=== PATIENT | female | born 1985 | race Caucasian/White ===

== ENCOUNTER 2019-02-05 13:56 | Inpatient (IN) | payer OTHER ==
[~2019-02-05] VITALS: Ht 170.2 cm; Wt 0.4 kg
[~2019-02-05 13:56] MED LIST: ACET325 PO; IBUP600 PO; Keflex500 MG PO; Naprosyn500 MG PO; Ultram50 MG PO; Veetids 500500 MG PO; Verotin-Gr Cap1 EACH PO
[2019-02-05 14:17] LABS: BASOPHILS ABSOLUTE AUTO 0.05 K/mm3 (0.00-0.23); BASOPHILS PERCENT AUTO 0 % (0-2); EOSINOPHILS ABSOLUTE AUTO 0.07 K/mm3 (0.00-0.68); EOSINOPHILS PERCENT AUTO 1 % (0-6); Hematocrit 40.1 % (33.0-51.0); Hemoglobin 13.3 g/dL (11.5-16.0); IMMATURE GRAN ABSOLUTE AUTO 0.12 K/mm3 (0.00-0.10); IMMATURE GRAN PERCENT AUTO 1 % (0-1); LYMPHOCYTES ABSOLUTE AUTO 2.07 K/mm3 (0.84-5.20); LYMPHOCYTES PERCENT AUTO 17 % (21-46); MONOCYTES ABSOLUTE AUTO 0.84 K/mm3 (0.16-1.47); MONOCYTES PERCENT AUTO 7 % (4-13); Mean Corpuscular HGB 30.7 pg (26.0-34.0); Mean Corpuscular HGB Conc 33.2 g/dL (31.5-36.5); Mean Corpuscular Volume 93 fL (80-100); Mean Platelet Volume 10.2 fL (9.1-12.4); NEUTROPHILS ABSOLUTE AUTO 8.93 K/mm3 (1.96-9.15); NEUTROPHILS PERCENT AUTO 74 % (41-73); Platelet Count 232 K/mm3 (150-400); RDW Coefficient Variation 11.9 % (11.7-14.2); RDW Standard Deviation 40.8 fL (35.1-46.3); Red Blood Cell Count 4.33 M/mm3 (3.80-5.20); White Blood Cell Count 12.08 K/mm3 (4.00-11.30)
[2019-02-07 09:20] LABS: PCO2 Cord - Venous 36.2 mmHg (40-50); PO2 Cord - Venous 24.2 mmHg (28-32)
[2019-02-07 09:21] LABS: PCO2 Cord - Arterial 47.3 mmHg (40-50); PO2 Cord - Arterial 15.7 mmHg (16-20); pH Cord - Arterial 7.33 (7.28-7.35)
--- NOTE | 2019-02-07 10:19 | NUR ---
02/[birth year]19 1019 Kevan Mckeon BABY BOY BORN AT 0904. 1ST AND 2ND 9-9. CORD SEGMENT SENT WITH RT ON ICE. CORD BLOOD SENT WITH BABY NURSE.
--- NOTE | 2019-02-07 15:00 | NUR ---
ABD INCISION REINFORCED.
--- NOTE | 2019-02-07 15:10 | NUR ---
PT UP TO VOID. ZOILA CARE DONE. OWN CLOTHES PUT ON. LINEN CHANGED.
--- NOTE | 2019-02-07 20:13 | NUR ---
ASSUMED CARE OF PATIENT JUST RETURNING FROM TRIP OUTSIDE VIA W/C. ENCOURAGED PATIENT TO REST/ PATIENT OOB IN ROOM CARING FOR INFANT. REPORTS PAIN 06/04. MEDICATED WITH 2 PERCOCET
--- NOTE | 2019-02-08 00:12 | NUR ---
2229 PATIENT IN HER BED. SIDERAILS UP X 4 AND BED RAISED TO HIGHEST POSITION. RN ATTEMPTED TO LOWER BED. PATIENT STATED," I HAVE IT THIS WAY FOR A REASON"
--- NOTE | 2019-02-08 06:19 | NUR ---
THIS RN IN ROOM TO ASSESS NB FOR "SPITTING UP." PT WANTING FURTHER ASSESSMENT OF NB. PT STATES THAT SHE IS BOTTLE FEEDING AND EVERY TIME SHE LAYS NB DOWN HE SPITS UP LARGE AMMOUNTS. RN FINDS NO ABNORMALITIES ON ASSESSMENT. NORMAL BOWEL TONES, SOFT ABDOMEN, REGULAR HEART RATE AND CLEAR LUNGS. SPIT UP ON BLANKET OF NORMAL COLOR. NB SLEEPING WITHOUT DISTRESS. PT BED FOUND IN RAISED POSITON. PT [place] OF UNSAFE PRACTICE. BED HAS BED LOWERED TO LOWEST POSITION MULTIPLE TIMES THOUGHOUT THE NIGHT. PT STATES THAT SHE RAISED BED TO BE IN ARMS REACH OF CRIB. DISCUSSED DROP OR FALL RISK. PT AWARE OF RISK BUT UNWILLING TO REMAIN COMPLIANT. BACK TO SLEEP EDUCATION REINFORCED. PT AWARE OF RECOMENDATION, HOWEVER REFUSED TO REMOVED EXTRA BLANKET AND SOFT ANIMALS FROM CRIB.
--- NOTE | 2019-02-08 09:31 | NUR ---
UP TO SHOWER. ABD DRESSING REMOVED. STERI STRIPS C/D/I
[2019-02-08] MEDS ORDERED: IBUP800 PO (11:21)
[2019-02-08] MEDS ORDERED: DOCU100 PO (11:21)
[2019-02-08] MEDS ORDERED: Percocet 5-3251 EACH (11:21)
--- NOTE | 2019-02-08 12:15 | NUR ---
DISCHARGE INSTRUCTIONS REVIEWED AND SIGNED. ALL QUESTIONS ANSWRED. BANDS MATCHED.
--- NOTE | 2019-02-08 12:20 | NUR ---
DISCHARGED TO HOME WITH INFANT
== END 2019-02-08 12:10 | disposition home or self-care (01) | DRG 785 ==
LOC: BC 02-07 06:27
PROVIDERS: ADMIT Obstetrics & Gynecology
PROC: 0UB90ZZ Excision of Uterus, Open Approach (ICD-10-PCS; 2019-02-07)
PROC: 10D00Z1 Extraction of Products of Conception, Low, Open Approach (ICD-10-PCS; principal; 2019-02-07 08:30)
PROC: 0UT70ZZ Resection of Bilateral Fallopian Tubes, Open Approach (ICD-10-PCS; 2019-02-07 08:30)
DX: O34.211 Maternal care for low transverse scar from previous cesarean delivery (principal); Z30.2 Encounter for sterilization; O34.13 Maternal care for benign tumor of corpus uteri, third trimester; D25.9 Leiomyoma of uterus, unspecified; Z3A.39 39 weeks gestation of pregnancy; Z37.0 Single live birth
CPT/HCPCS: 36415; 82803; 85025; 86850; 86900; 86901; J0694; J1885; J2405; J2590; J2765; J3010; J7120

== ENCOUNTER 2019-05-11 13:35 | Emergency (ER) | payer OTHER ==
[~2019-05-11] VITALS: Ht 170.2 cm; Wt 68.0 kg
[~2019-05-11 13:35] MED LIST changes: +DOCU100 PO; +IBUP800 PO; +Percocet 5-3251 EACH
[2019-05-11] MEDS ORDERED: Roxicodone5 MG PO (15:14)
[2019-05-11] MEDS ORDERED: Keflex500 MG PO (15:15)
== END 2019-05-11 15:36 | disposition home or self-care (01) ==
LOC: ER 13:35
DX: S02.2XXA Fracture of nasal bones, initial encounter for closed fracture (principal); W01.198A Fall on same level from slipping, tripping and stumbling with subsequent striking against other object, initial encounter; Z79.899 Other long term (current) drug therapy; Z79.891 Long term (current) use of opiate analgesic; F17.200 Nicotine dependence, unspecified, uncomplicated
CPT/HCPCS: 12013; 70160; 99283-25

== ENCOUNTER 2019-05-13 10:06 | Emergency (ER) | payer OTHER ==
[~2019-05-13] VITALS: Ht 167.6 cm; Wt 68.0 kg
[~2019-05-13 10:06] MED LIST changes: +Roxicodone5 MG PO
[2019-05-13] MEDS ORDERED: Norco 5-325 Ta1 EACH PO (11:46)
[2019-05-13] MEDS ORDERED: Roxicodone5 MG PO (11:59)
== END 2019-05-13 11:52 | disposition home or self-care (01) ==
LOC: ER 10:06
DX: S02.2XXA Fracture of nasal bones, initial encounter for closed fracture (principal); F17.200 Nicotine dependence, unspecified, uncomplicated; W01.198A Fall on same level from slipping, tripping and stumbling with subsequent striking against other object, initial encounter
CPT/HCPCS: 70486; 99283-25

== ENCOUNTER 2020-07-11 20:13 | Inpatient (IN) | payer OTHER ==
[~2020-07-11] VITALS: Ht 167.6 cm; Wt 61.7 kg
[~2020-07-11 20:13] MED LIST changes: +Norco 5-325 Ta1 EACH PO
[2020-07-11 20:50] LABS: BASOPHILS ABSOLUTE AUTO 0.03 K/mm3 (0.00-0.23); BASOPHILS PERCENT AUTO 0 % (0-2); EOSINOPHILS ABSOLUTE AUTO 0.02 K/mm3 (0.00-0.68); EOSINOPHILS PERCENT AUTO 0 % (0-6); Hematocrit 37.7 % (33.0-51.0); Hemoglobin 12.3 g/dL (11.5-16.0); IMMATURE GRAN ABSOLUTE AUTO 0.06 K/mm3 (0.00-0.10); IMMATURE GRAN PERCENT AUTO 0 % (0-1); LYMPHOCYTES ABSOLUTE AUTO 1.77 K/mm3 (0.84-5.20); LYMPHOCYTES PERCENT AUTO 12 % (21-46); MONOCYTES ABSOLUTE AUTO 0.98 K/mm3 (0.16-1.47); MONOCYTES PERCENT AUTO 6 % (4-13); Mean Corpuscular HGB Conc 32.6 g/dL (31.5-36.5); Mean Corpuscular Volume 83 fL (80-100); Mean Platelet Volume 9.1 fL (9.1-12.4); NEUTROPHILS ABSOLUTE AUTO 12.54 K/mm3 (1.96-9.15); NEUTROPHILS PERCENT AUTO 81 % (41-73); Platelet Count 384 K/mm3 (150-400); RDW Coefficient Variation 14.2 % (11.7-14.2); RDW Standard Deviation 42.9 fL (35.1-46.3); Red Blood Cell Count 4.56 M/mm3 (3.80-5.20)
[2020-07-11 21:09] LABS: Alanine Aminotransfer (ALT/SGP 20 U/L (12-78); Albumin, Blood 3.6 g/dL (3.4-5.0); Albumin/Globulin Ratio 0.8 (0.8-1.8); Alk Phos 93 U/L (50-136); Anion Gap 8 mmol/L (6-16); Aspartate Aminotrans (AST/SGOT 20 U/L (12-37); Bilirubin, Total 0.5 mg/dL (0.1-1.0); Blood Urea Nitrogen 5 mg/dL (8-24); Bun/Creatinine Ratio 8.3 (12.0-20.0); CO2, Blood 23 mmol/L (21-32); Calcium, Blood 9.4 mg/dL (8.5-10.1); Chloride, Blood 103 mmol/L (98-108); Globulin, Blood 4.7 g/dL (2.2-4.0); Glomerular Filtration Rate >60 (60-); Glucose, Blood 92 mg/dL (70-99); Potassium, Blood 2.8 mmol/L (3.5-5.5); Sodium, Blood 134 mmol/L (136-145); Total Protein, Blood 8.3 g/dL (6.4-8.2)
[2020-07-11 21:56] LABS: Source, Urine Clean Catch
[2020-07-11 22:00] LABS: Bilirubin, Urine Neg (Neg); Blood, Urine Neg (Neg); Glucose Qualitative, Urine Neg (Neg); Ketones, Urine Neg (Neg); Leukocyte Esterase, Urine Neg (Neg); Nitrite, Urine Neg (Neg); Protein, Urine Neg (Neg); Specific Gravity, Urine 1.005 (1.003-1.022); Urobilinogen, Urine NORM (Normal)
[2020-07-11 22:01] LABS: Appearance, Urine Clear (Clear); Color, Urine Yellow (P-Yellow)
[2020-07-12 03:09] LABS: Adenovirus Not Detected (NOT DETECT); Bordetella pertussis Not Detected (NOT DETECT); Chlamydophila pneumoniae Not Detected (NOT DETECT); Coronavirus 229E Not Detected (NOT DETECT); Coronavirus HKU1 Not Detected (NOT DETECT); Coronavirus NL63 Not Detected (NOT DETECT); Coronavirus OC43 Not Detected (NOT DETECT); Human Metapneumovirus Not Detected (NOT DETECT); Human Rhinovirus/Enterovirus Detected (NOT DETECT); Influenza A/2009-H1 Not Detected (NOT DETECT); Influenza A/H1 Not Detected (NOT DETECT); Influenza A/H3 Not Detected (NOT DETECT); Influenza B Not Detected (NOT DETECT); Mycoplasma pneumoniae Not Detected (NOT DETECT); Parainfluenza Virus 1 Not Detected (NOT DETECT); Parainfluenza Virus 2 Not Detected (NOT DETECT); Parainfluenza Virus 3 Not Detected (NOT DETECT); Parainfluenza Virus 4 Not Detected (NOT DETECT); Respiratory Syncytial Virus Not Detected (NOT DETECT)
--- NOTE | 2020-07-12 04:46 | NUR ---
SHIFT SUMMARY: AFEB. AAOX4. ABLE TO MAKE NEEDS KNOWN. COURSE, LATE EXPIRATORY RHONCHI AUSCULTATED THROUGHOUT. PT COUGHS IN RESPONSE TO DEEP BREATHING. STATES COUGHING HURTS CHEST B. COUGH PRODUCING THICK YELLOW SPUTUM. 02 SATS 98-100% ON RA. PT REPORTING THAT BREATHING TX HELPS SOB. DEMONSTRATES SOME ANXIETY- REPETITIVE, TALKATIVE, NERVOUS ABOUT RESPIRATORY STATUS. REDIRECTABLE, COOPERATIVE. NO ACUTE CONCERNS AT THIS TIME. WILL CONT TO MONITOR.
[2020-07-12 04:51] LABS: Adenovirus F 40/41 Not Detected (NOT DETECT); Astrovirus Not Detected (NOT DETECT); Campylobacter Sp Not Detected (NOT DETECT); Cryptosporidium Not Detected (NOT DETECT); Cyclospora Cayetanensis Not Detected (NOT DETECT); E. Coli O157 Not Detected (NOT DETECT); Entamoeba Histolytica Not Detected (NOT DETECT); Enteroaggregative E. coli-EAEC Not Detected (NOT DETECT); Enteropathogenic E. coli-EPEC Detected (NOT DETECT); Enterotoxigenic E. coli-ETEC Not Detected (NOT DETECT); Giardia Lamblia Not Detected (NOT DETECT); Norovirus GI/GII Not Detected (NOT DETECT); Plesiomonas Shigelloides Not Detected (NOT DETECT); Rotavirus A Not Detected (NOT DETECT); Salmonella Sp Not Detected (NOT DETECT); Sapovirus Not Detected (NOT DETECT); Shiga Toxin-prod E. coli-STEC Not Detected (NOT DETECT); Shigella/Enteroin E. coli-EIEC Not Detected (NOT DETECT); Vibrio Cholerae Not Detected (NOT DETECT); Vibrio Sp Not Detected (NOT DETECT); Yersinia Enterocolitica Not Detected (NOT DETECT)
[2020-07-12 05:18] LABS: BASOPHILS ABSOLUTE AUTO 0.01 K/mm3 (0.00-0.23); BASOPHILS PERCENT AUTO 0 % (0-2); EOSINOPHILS PERCENT AUTO 0 % (0-6); Hematocrit 35.7 % (33.0-51.0); Hemoglobin 11.3 g/dL (11.5-16.0); IMMATURE GRAN ABSOLUTE AUTO 0.06 K/mm3 (0.00-0.10); IMMATURE GRAN PERCENT AUTO 1 % (0-1); LYMPHOCYTES ABSOLUTE AUTO 0.46 K/mm3 (0.84-5.20); LYMPHOCYTES PERCENT AUTO 4 % (21-46); MONOCYTES ABSOLUTE AUTO 0.11 K/mm3 (0.16-1.47); MONOCYTES PERCENT AUTO 1 % (4-13); Mean Corpuscular HGB 26.4 pg (26.0-34.0); Mean Corpuscular HGB Conc 31.7 g/dL (31.5-36.5); Mean Corpuscular Volume 83 fL (80-100); Mean Platelet Volume 9.5 fL (9.1-12.4); NEUTROPHILS ABSOLUTE AUTO 11.03 K/mm3 (1.96-9.15); NEUTROPHILS PERCENT AUTO 95 % (41-73); Platelet Count 373 K/mm3 (150-400); RDW Coefficient Variation 14.3 % (11.7-14.2); RDW Standard Deviation 43.6 fL (35.1-46.3); Red Blood Cell Count 4.28 M/mm3 (3.80-5.20); White Blood Cell Count 11.67 K/mm3 (4.00-11.30)
[2020-07-12 05:39] LABS: Alanine Aminotransfer (ALT/SGP 22 U/L (12-78); Albumin, Blood 3.2 g/dL (3.4-5.0); Albumin/Globulin Ratio 0.7 (0.8-1.8); Alk Phos 90 U/L (50-136); Anion Gap 7 mmol/L (6-16); Aspartate Aminotrans (AST/SGOT 13 U/L (12-37); Bilirubin, Total 0.2 mg/dL (0.1-1.0); Blood Urea Nitrogen 7 mg/dL (8-24); Bun/Creatinine Ratio 10.3 (12.0-20.0); CO2, Blood 26 mmol/L (21-32); Calcium, Blood 9.5 mg/dL (8.5-10.1); Chloride, Blood 106 mmol/L (98-108); Creatinine, Blood 0.68 mg/dL (0.40-1.00); Globulin, Blood 4.7 g/dL (2.2-4.0); Glomerular Filtration Rate >60 (60-); Glucose, Blood 150 mg/dL (70-99); Potassium, Blood 3.4 mmol/L (3.5-5.5); Sodium, Blood 139 mmol/L (136-145); Total Protein, Blood 7.9 g/dL (6.4-8.2)
--- NOTE | 2020-07-12 18:27 | NUR ---
NO ACUTE CHANGES NOTED THIS SHIFT, NO RESP DISTRESS NOTED, NO C/O PAIN, WILL CONTINUE TO MONITOR AND REPORT TO ONCOMING RN
--- NOTE | 2020-07-12 22:12 | NUR ---
ANXIOUS *LATE ENTRY* PT IS TALKING VERY FAST, HANDS ARE SHAKY, SHE IS RESTLESS. PT REPORTS FEELING ANXIOUS. STATES SHE INFORMED DR MANSFIELD TODAY THAT SHE HAS BEEN STRUGGLING c ANXIETY BUT HASN'T BEEN PERSCRIBED ANYTHING FOR IT SINCE SHE DOESN'T HAVE A PRIMARY DR. PT ALSO STATES HER FEAAR/ANXIETY IS WORSE AT NIGHT BECAUSE SHE FEARS HER CHILDREN ARE GOING TO WHILE SHE'S ASLEEP & HAS EVEN HAD BAD NIGHTMARES OF HORRIBLE THINGS HAPPENING TO HER CHILDREN. DR MANSFIELD ORDERED BENEDRYL EARLIER & PT REPORTS THAT DID NOT HELP HER AT ALL. NOTIFIED DR MONROY & HE ORDERED 0.25MG XANAX Q8PRN. WILL MONITOR FOR EFFECTIVENESS.
--- NOTE | 2020-07-13 07:26 | NUR ---
SHIFT SUMMARY AOX4. VSS. TELE NSR @83. VERY ANXIOUS @BEGINNING OF SHIFT, MEDICATED 1X W/0.25 MG XANAX-READ PREVIOUS NOTE. REPORTS FEELING CALMER AFTER TAKING XANAX & MELATONIN, HAS BEEN ABLE TO GET SOME SLEEP TONIGHT. SPO2 >90% ON RA. RHONCUS BREATH SOUND T/O LUNGS c DIM INSPIRATORY WHEEZES IN BASES. WET HARSH COUGH, MEDICATED W/TESSELON PERELS & GUAIFENESIN W/CODEINE 1X EACH. IND IN ROOM. CALL LIGHT IN REACH.
[2020-07-13 08:18] LABS: BASOPHILS ABSOLUTE AUTO 0.01 K/mm3 (0.00-0.23); BASOPHILS PERCENT AUTO 0 % (0-2); EOSINOPHILS PERCENT AUTO 0 % (0-6); Hematocrit 33.9 % (33.0-51.0); Hemoglobin 10.6 g/dL (11.5-16.0); IMMATURE GRAN ABSOLUTE AUTO 0.05 K/mm3 (0.00-0.10); IMMATURE GRAN PERCENT AUTO 0 % (0-1); LYMPHOCYTES ABSOLUTE AUTO 1.01 K/mm3 (0.84-5.20); LYMPHOCYTES PERCENT AUTO 9 % (21-46); MONOCYTES PERCENT AUTO 4 % (4-13); Mean Corpuscular HGB 26.9 pg (26.0-34.0); Mean Corpuscular HGB Conc 31.3 g/dL (31.5-36.5); Mean Corpuscular Volume 86 fL (80-100); Mean Platelet Volume 9.4 fL (9.1-12.4); NEUTROPHILS ABSOLUTE AUTO 9.79 K/mm3 (1.96-9.15); NEUTROPHILS PERCENT AUTO 86 % (41-73); Platelet Count 361 K/mm3 (150-400); RDW Coefficient Variation 14.5 % (11.7-14.2); RDW Standard Deviation 45.1 fL (35.1-46.3); Red Blood Cell Count 3.94 M/mm3 (3.80-5.20); White Blood Cell Count 11.36 K/mm3 (4.00-11.30)
[2020-07-13 08:55] LABS: Alanine Aminotransfer (ALT/SGP 40 U/L (12-78); Albumin, Blood 2.8 g/dL (3.4-5.0); Albumin/Globulin Ratio 0.7 (0.8-1.8); Alk Phos 72 U/L (50-136); Anion Gap 5 mmol/L (6-16); Aspartate Aminotrans (AST/SGOT 32 U/L (12-37); Bilirubin, Total 0.2 mg/dL (0.1-1.0); Blood Urea Nitrogen 6 mg/dL (8-24); Bun/Creatinine Ratio 9.8 (12.0-20.0); CO2, Blood 25 mmol/L (21-32); Chloride, Blood 111 mmol/L (98-108); Creatinine, Blood 0.61 mg/dL (0.40-1.00); Glomerular Filtration Rate >60 (60-); Glucose, Blood 133 mg/dL (70-99); Potassium, Blood 4.2 mmol/L (3.5-5.5); Sodium, Blood 141 mmol/L (136-145); Total Protein, Blood 6.8 g/dL (6.4-8.2)
--- NOTE | 2020-07-13 17:38 | NUR ---
PT SAYS SHE IS FEELING BETTER NOW AND SAYS PER DR MANSFIELD SHE WILL BE DISCHARGED IN THE MORNING. TELE DISCONTINUED AND IV REMOVED AFTER GETTING WET AND COMING PARTIALLY OUT. ORDERS RECEIVED TO LEAVE OUT. NO ACUTE CHANGES, WILL CONTINUE TO MONITOR AND REPORT TO ONCOMING RN
--- NOTE | 2020-07-14 04:26 | NUR ---
SHIFT SUMMARY AOX4. VSS. SPO2 >90% ON RA. E/U RESPIRATIONS. LUNGS ARE COURSE W/INSPIRATORY WHEEZES T/O. REPORTS SHARP PAIN ON R SIDE W/COUGHING. OCCASIONAL PRODUCTIVE WET COUGH. RECIEVING BREATHING TX PRN. REPORTED FEELING ANXIOUS @BEDTIME & IT WAS TOO EARLY FOR XANAX, THEREFORE MEDICATED W/BENEDRYL & MELATONIN. AFTER PT WAS ABLE TO RELAX & GET SOME SLEEP. THIS AM PT REPORTS FEELING ANXIOUS AGAIN & WAS MEDICATED 1X W/XANAX PER ORDERS. CALL LIGHT IN REACH. [facility] PT.
[2020-07-14] MEDS ORDERED: ALBU2.5V5 INH (12:25)
[2020-07-14] MEDS ORDERED: AZIT250 PO (12:26)
[2020-07-14] MEDS ORDERED: BENZ100A PO (12:26)
[2020-07-14] MEDS ORDERED: LOPE2C PO (12:27)
[2020-07-14] MEDS ORDERED: MELATONIN5 M1 PO (12:27)
[2020-07-14] MEDS ORDERED: AMOCLA875 PO (12:28)
[2020-07-14] MEDS ORDERED: PRED20 PO (12:28)
[2020-07-14] MEDS ORDERED: BUPR150ER PO (12:29)
--- NOTE | 2020-07-14 15:23 | NUR ---
PT DISCHARGED AROUND 1230 WITH DC INSTRUCTIONS, INSTRUCTIONS TO FOLLOW DR MANSFIELD FOR F/U. RX FAXED TO PHARMACY AND [employer] [facility]INE WILL BE DELIVERED TODAY. CALL FROM [facility] THAT DR MANSFIELD WAS NOT AN ENROLLED PROVIDER AND COULDNT FILL THE RX AND HAVE [facility] COVER IT. CALLED BACK WITH ENROLLED PROVIDER OF DR FRIEDMAN THAT IS COVERING DR MANSFIELD. NO RETURN CALL FROM [facility] OF PT, ASSUMING THEY WERE ABLE TO MAKE THE CHANGES.
== END 2020-07-14 12:56 | disposition home or self-care (01) | DRG 194 ==
LOC: ER 20:13 → MEDS 23:34
PROVIDERS: Emergency Medicine; Family Medicine; Physician Assistant; ADMIT Internal Medicine
DX: J18.9 Pneumonia, unspecified organism (principal); J45.41 Moderate persistent asthma with (acute) exacerbation; E87.6 Hypokalemia; Z20.828 Contact with and (suspected) exposure to other viral communicable diseases; F17.210 Nicotine dependence, cigarettes, uncomplicated; E86.0 Dehydration; K52.9 Noninfective gastroenteritis and colitis, unspecified; R16.0 Hepatomegaly, not elsewhere classified; R79.1 Abnormal coagulation profile
CPT/HCPCS: 0097U; 0099U; 36415; 71045; 71260; 80053; 81003; 83605; 85025; 85379; 87040; 87070; 87205; 93005; 93010; 94640; 94667; 94760; 96365-59; 96375-59; 96376; 99285-25; A9270; G0378; J0456; J0696; J1100; J7030; J7050; J7512; Q0163; Q9967; U0002

== ENCOUNTER 2024-01-11 23:03 | Emergency (ER) | payer OTHER ==
[~2024-01-11] VITALS: Ht 170.2 cm; Wt 63.5 kg
[~2024-01-11 23:03] MED LIST changes: +ALBU2.5V5 INH; +AMOCLA875 PO; +AZIT250 PO; +BENZ100A PO; +BUPR150ER PO; +LOPE2C PO; +MELATONIN5 M1 PO; +PRED20 PO
[2024-01-11 23:16] VITALS: BP 115/84
== END 2024-01-11 23:25 | disposition home or self-care (01) ==
LOC: ER 23:03
DX: N92.0 Excessive and frequent menstruation with regular cycle (principal); Z79.899 Other long term (current) drug therapy; Z79.52 Long term (current) use of systemic steroids; F17.200 Nicotine dependence, unspecified, uncomplicated
CPT/HCPCS: 99283